=== PATIENT | male | born 1985 | race Native Hawaiian/Other Pacific Islander ===

== ENCOUNTER 2017-06-24 11:40 | Inpatient (IN) | payer OTHER ==
[2017-06-24] MEDS ORDERED: SODIUM CHLORIDE 0.9% 1,000 ML IV STA (12:04)
[2017-06-24] MEDS ORDERED: LORazepam 2 MG/ML INJ IV STA ×2 (12:04→14:29)
--- NOTE | 2017-06-24 12:04 | ED ---
General Adult HPI - General Chief complaint: Seizure Stated complaint: Seizure Time Seen by Provider: 06/24/17 11:45 Source: patient, RN notes reviewed Mode of arrival: EMS Limitations: no limitations - History of Present Illness Initial comments: 32-year-old male presents to the emergency department with chief complaint of seizure. Patient has no history of seizure. He was in the garage sweeping and the next thing he knows he woke up on the ground. Patient went into the house and he had 2 more seizures. One was witnessed by his and the second one was witnessed by EMS. He was recently placed on psychiatric medications but he states he has been taking the medicine was prescribed. There is no history of seizures and no family history of seizures. Patient does admit to headache he is postictal during time of exam. He states that his whole body feels sore. His shoulders his back chest his legs. They were concerned due to the seizure with history so they thought that they should be seen. Patient denies any recent fever, chills, shortness of breath, chest pain, back pain, abdominal pain , nausea vomiting, numbness or tingling, dysuria or hematuria, constipation or diarrhea, headaches or visual changes, or any other current symptoms. - Related Data Home Medications Medication Instructions Recorded Confirmed Citalopram Hydrobromide [CeleXA] 20 mg PO DAILY 06/24/17 06/24/17 clonazePAM [KlonoPIN] 0.5 mg PO HS 06/24/17 06/24/17 Allergies Allergy/AdvReac Type Severity Reaction Status Date / Time No Known Allergies Allergy Verified 06/24/17 12:04 Review of Systems ROS Statement: Those systems with pertinent positive or pertinent negative responses have been documented in the HPI. ROS Other: All systems not noted in ROS Statement are negative. Past Medical History Past Medical History: No Reported History History of Any Multi-Drug Resistant Organisms: None Reported Past Surgical History: No Surgical Hx Reported Past Psychological History: Depression Smoking Status: Current every day smoker Past Alcohol Use History: Occasional Past Drug Use History: None Reported General Exam Limitations: no limitations General appearance: alert, in no apparent distress Head exam: Present: other (Patient does appear to have a hematoma with abrasions to left side of the head and face) Eye exam: Present: normal appearance, PERRL, EOMI. Absent: scleral icterus, conjunctival injection, periorbital swelling ENT exam: Present: normal exam, mucous membranes moist Neck exam: Present: normal inspection. Absent: tenderness, meningismus, lymphadenopathy Respiratory exam: Present: normal lung sounds bilaterally. Absent: respiratory distress, wheezes, rales, rhonchi, stridor Cardiovascular Exam: Present: regular rate, normal rhythm, normal heart sounds. Absent: systolic murmur, diastolic murmur, rubs, gallop, clicks GI/Abdominal exam: Present: soft, normal bowel sounds. Absent: distended, tenderness, guarding, rebound, rigid Extremities exam: Present: normal inspection, full ROM, tenderness (Generalized diffuse), normal capillary refill. Absent: pedal edema, joint swelling, calf tenderness Back exam: Present: normal inspection Neurological exam: Present: alert, oriented X3, CN II-XII intact, reflexes normal. Absent: motor sensory deficit Psychiatric exam: Present: normal affect, normal mood Skin exam: Present: warm, dry, intact, normal color. Absent: rash Course Vital Signs 06/24/17 06/24/17 06/24/17 11:45 12:00 12:30 Temperature 98.6 F Pulse Rate 111 H 109 H 100 Respiratory 24 20 20 Rate Blood Pressure 135/60 129/65 132/85 O2 Sat by Pulse 99 99 100 Oximetry 06/24/17 06/24/17 06/24/17 12:43 13:45 14:32 Temperature Pulse Rate 110 H 93 94 Respiratory 22 18 20 Rate Blood Pressure 141/82 141/82 O2 Sat by Pulse 99 96 100 Oximetry - Reevaluation(s) Reevaluation #1: 06/24/17 14:31 Patient had a witnessed seizure here in the emergency department that lasted for about 20 seconds. Patient had generalized shaking. EKG Findings - EKG Comments: EKG Findings:: normal sinus rhythm 88 bpm, normal axis, no atopy, no S-T depressions or elevations, Medical Decision Making - Medical Decision Making 32-year-old male presents for new onset seizure. Patient did have a witnessed seizure here one seizure witnessed by EMS as well as possibly to prior. At this time lab work is been reviewed. Patient was given Ativan and loaded with Keppra. At this time we will admit the patient for continued care. Patient and family are in agreement this plan all questions have been answered. Dr. Ramirez agrees to the admission. - Lab Data Result diagrams: 06/24/17 12:10 06/24/17 12:10 Lab Results 06/24/17 06/24/17 06/24/17 Range/Units 12:10 12:10 12:10 WBC 10.6 (3.8-10.6) k/uL RBC 5.11 (4.30-5.90) m/uL Hgb 16.7 (13.0-17.5) gm/dL Hct 50.3 (39.0-53.0) % MCV 98.4 (80.0-100.0) fL MCH 32.7 (25.0-35.0) pg MCHC 33.2 (31.0-37.0) g/dL RDW 13.3 (11.5-15.5) % Plt Count 368 (150-450) k/uL Neutrophils % 81 % Lymphocytes % 10 % Monocytes % 6 % Eosinophils % 1 % Basophils % 0 % Neutrophils # 8.6 H (1.3-7.7) k/uL Lymphocytes # 1.1 (1.0-4.8) k/uL Monocytes # 0.7 (0-1.0) k/uL Eosinophils # 0.1 (0-0.7) k/uL Basophils # 0.0 (0-0.2) k/uL Sodium 141 (137-145) mmol/L Potassium 4.6 (3.5-5.1) mmol/L Chloride 106 (98-107) mmol/L Carbon Dioxide 23 (22-30) mmol/L Anion Gap 12 mmol/L BUN 8 L (9-20) mg/dL Creatinine 0.80 (0.66-1.25) mg/dL Est GFR (MDRD) Af Amer >60 (>60 ml/min/1.73 sqM) Est GFR (MDRD) Non-Af >60 (>60 ml/min/1.73 sqM) Glucose 98 (74-99) mg/dL Plasma Lactic Acid Boni 1.2 (0.7-2.0) mmol/L Calcium 10.1 (8.4-10.2) mg/dL Total Bilirubin 1.1 (0.2-1.3) mg/dL AST 89 H (17-59) U/L ALT 160 H (21-72) U/L Alkaline Phosphatase 62 (38-126) U/L Troponin I (0.000-0.034) ng/mL Total Protein 7.9 (6.3-8.2) g/dL Albumin 4.7 (3.5-5.0) g/dL Urine Color Urine Appearance (Clear) Urine pH (5.0-8.0) Ur Specific [place] (1.001-1.035) Urine Protein (Negative) Urine Glucose (UA) (Negative) Urine Ketones (Negative) Urine Blood (Negative) Urine Nitrite (Negative) Urine Bilirubin (Negative) Urine Urobilinogen (<2.0) mg/dL Ur Leukocyte Esterase (Negative) Urine WBC (0-5) /hpf Hyaline Casts (0-2) /lpf Urine Mucus (None) /hpf Urine Opiates Screen (NotDetected) Ur Oxycodone Screen (NotDetected) Urine Methadone Screen (NotDetected) Ur Propoxyphene Screen (NotDetected) Ur Barbiturates Screen (NotDetected) U Tricyclic Antidepress (NotDetected) Ur Phencyclidine Scrn (NotDetected) Ur Amphetamines Screen (NotDetected) U Methamphetamines Scrn (NotDetected) U Benzodiazepines Scrn (NotDetected) Urine Cocaine Screen (NotDetected) U Marijuana (THC) Screen (NotDetected) Serum Alcohol <10 mg/dL 06/24/17 06/24/17 06/24/17 Range/Units 12:10 13:50 13:50 WBC (3.8-10.6) k/uL RBC (4.30-5.90) m/uL Hgb (13.0-17.5) gm/dL Hct (39.0-53.0) % MCV (80.0-100.0) fL MCH (25.0-35.0) pg MCHC (31.0-37.0) g/dL RDW (11.5-15.5) % Plt Count (150-450) k/uL Neutrophils % % Lymphocytes % % Monocytes % % Eosinophils % % Basophils % % Neutrophils # (1.3-7.7) k/uL Lymphocytes # (1.0-4.8) k/uL Monocytes # (0-1.0) k/uL Eosinophils # (0-0.7) k/uL Basophils # (0-0.2) k/uL Sodium (137-145) mmol/L Potassium (3.5-5.1) mmol/L Chloride (98-107) mmol/L Carbon Dioxide (22-30) mmol/L Anion Gap mmol/L BUN (9-20) mg/dL Creatinine (0.66-1.25) mg/dL Est GFR (MDRD) Af Amer (>60 ml/min/1.73 sqM) Est GFR (MDRD) Non-Af (>60 ml/min/1.73 sqM) Glucose (74-99) mg/dL Plasma Lactic Acid Boni (0.7-2.0) mmol/L Calcium (8.4-10.2) mg/dL Total Bilirubin (0.2-1.3) mg/dL AST (17-59) U/L ALT (21-72) U/L Alkaline Phosphatase (38-126) U/L Troponin I <0.012 (0.000-0.034) ng/mL Total Protein (6.3-8.2) g/dL Albumin (3.5-5.0) g/dL Urine Color Yellow Urine Appearance Cloudy (Clear) Urine pH 8.0 (5.0-8.0) Ur Specific [place] 1.014 (1.001-1.035) Urine Protein 1+ H (Negative) Urine Glucose (UA) Negative (Negative) Urine Ketones 3+ H (Negative) Urine Blood Negative (Negative) Urine Nitrite Negative (Negative) Urine Bilirubin Negative (Negative) Urine Urobilinogen 8.0 (<2.0) mg/dL Ur Leukocyte Esterase Negative (Negative) Urine WBC 26 H (0-5) /hpf Hyaline Casts 18 H (0-2) /lpf Urine Mucus Many H (None) /hpf Urine Opiates Screen Detected H (NotDetected) Ur Oxycodone Screen Not Detected (NotDetected) Urine Methadone Screen Not Detected (NotDetected) Ur Propoxyphene Screen Not Detected (NotDetected) Ur Barbiturates Screen Not Detected (NotDetected) U Tricyclic Antidepress Not Detected (NotDetected) Ur Phencyclidine Scrn Not Detected (NotDetected) Ur Amphetamines Screen Not Detected (NotDetected) U Methamphetamines Scrn Not Detected (NotDetected) U Benzodiazepines Scrn Detected H (NotDetected) Urine Cocaine Screen Not Detected (NotDetected) U Marijuana (THC) Screen Not Detected (NotDetected) Serum Alcohol mg/dL - Radiology Data Radiology results: report reviewed, image reviewed Disposition Clinical Impression: Forehead contusion, Seizure, Elevated liver enzymes Disposition: ADMITTED IP TO THIS [facility] Condition: Stable Referrals: Anibal Keller MD [Primary Care Provider] - 1-2 days Decision Date: 06/24/17 Decision Time: 14:35
[2017-06-24] MEDS ORDERED: DIPH,PERTUS(ACELL)TETVAC-LF 0.5 ML VIAL IM ONE (12:05)
[2017-06-24] MEDS ORDERED: RX INFO: IV CONTRAST WAS GIVEN 1 EACH MISC MISCELLANE PRN (12:05)
[2017-06-24 12:35] LABS: ALT 160 U/L (21-72); AST 89 U/L (17-59); Albumin 4.7 g/dL (3.5-5.0); Alcohol <10 mg/dL; Alkaline Phosphatase 62 U/L (38-126); Anion Gap 12 mmol/L; Blood Urea Nitrogen 8 mg/dL (9-20); Calcium 10.1 mg/dL (8.4-10.2); Carbon Dioxide 23 mmol/L (22-30); Chloride 106 mmol/L (98-107); Glucose 98 mg/dL (74-99); Potassium 4.6 mmol/L (3.5-5.1); Sodium 141 mmol/L (137-145); Total Bilirubin 1.1 mg/dL (0.2-1.3); Total Protein 7.9 g/dL (6.3-8.2)
[2017-06-24 12:44] LABS: Basophils % (A) 0 %; Eosinophils # (A) 0.1 k/uL (0-0.7); Eosinophils % (A) 1 %; HCT 50.3 % (39.0-53.0); HGB 16.7 gm/dL (13.0-17.5); Lymphocytes # (A) 1.1 k/uL (1.0-4.8); Lymphocytes % (A) 10 %; MCH 32.7 pg (25.0-35.0); MCHC 33.2 g/dL (31.0-37.0); MCV 98.4 fL (80.0-100.0); Mean Platelet Volume 6.5; Monocytes # (A) 0.7 k/uL (0-1.0); Monocytes % (A) 6 %; Neutrophils # (A) 8.6 k/uL (1.3-7.7); Neutrophils % (A) 81 %; Platelet Count 368 k/uL (150-450); RBC 5.11 m/uL (4.30-5.90); RDW 13.3 % (11.5-15.5); WBC 10.6 k/uL (3.8-10.6)
--- NOTE | 2017-06-24 12:57 | CT ---
EXAMINATION TYPE: CT brain oumar nolan DATE OF EXAM: 06/24/2017 COMPARISON: NONE HISTORY: Patient poor historian. Trauma. Patient found on ground with multiple left side facial lace rations. Probable seizure with fall. Patient complains of headache. Patient exhibits altered menta l status and memory loss. CT DLP: 1761.3 mGycm Automated exposure control for dose reduction was used. TECHNIQUE: CT scan of the head and cervical spine are performed without contrast. FINDINGS: There is no acute intracranial hemorrhage, mass effect, or midline shift identified. The ventricles and sulci are within normal limits in size. The globes are intact and the visualized sin uses are clear. Cervical spine is visualized in its entirety from C1 through upper thoracic levels and demonstrates s atisfactory alignment without evidence of acute fracture or dislocation. Prevertebral soft tissue ap pears within normal limits. The C1-C2 articulation is unremarkable. IMPRESSION: 1. There is no acute fracture or dislocation evident in the cervical spine. 2. No acute intracranial hemorrhage, mass effect, or midline shift is seen.
--- NOTE | 2017-06-24 12:58 | CT ---
EXAMINATION TYPE: CT facial bones wo con DATE OF EXAM: 06/24/2017 COMPARISON: NONE HISTORY: 32-year-old male Patient poor historian. Patient found on ground with multiple left side f acial lacerations. Probable seizure with fall. Patient complains of headache. Patient exhibits alt ered mental status and memory loss. TECHNIQUE: Contiguous axial scanning of the facial bones without IV contrast. Coronal reconstructions performed. CT DLP: 468 mGycm Automated exposure control for dose reduction was used. FINDINGS: Brain and cervical spine reported separately. Trace mucosal thickening within the anterior ethmoid air cells and left sphenoid sinus. There is lobu lated mucosal thickening along the lateral roof of the left maxillary sinus. No air-fluid levels. Rightward nasal septal deviation. No nasal bone, orbital, zygomatic arch, or pterygoid plate fracture identified. IMPRESSION: NO ACUTE FACIAL BONE FRACTURE SEEN. MILD CHRONIC PARANASAL SINUS DISEASE AND RIGHTWARD NASAL SEPTAL D EVIATION
[2017-06-24 14:28] LABS: Appearance,Urine Cloudy (Clear); Bilirubin,Urine Negative (Negative); Blood,Urine Negative (Negative); Color,Urine Yellow; Glucose,Urine (UA) Negative (Negative); Hyaline Casts,Urine 18 /lpf (0-2); Ketones,Urine 3+ (Negative); Leukocyte Esterase,Urine Negative (Negative); Mucus,Urine Many /hpf; Nitrite,Urine Negative (Negative); Protein,Urine 1+ (Negative); Specific Gravity,Urine 1.014 (1.001-1.035); WBC,Urine 26 /hpf (0-5)
[2017-06-24] MEDS ORDERED: levETIRAcetam IV 1,500 MG in SALINE 1 100ML.BAG IVPB STA (14:30)
[2017-06-24 14:34] LABS: Urn Cannabinoid Scrn Not Detected (NotDetected)
[2017-06-24 14:35] LABS: Amphetamine Screen,Urine Not Detected (NotDetected); Barbiturate Screen,Urine Not Detected (NotDetected); Benzodiazepines Screen,Urine Detected (NotDetected); Cocaine Screen,Urine Not Detected (NotDetected); Methadone Screen, Urine Not Detected (NotDetected); Opiate Screen,Urine Detected (NotDetected); Oxycodone Screen, Urine Not Detected (NotDetected); Phencyclidine Screen,Urine Not Detected (NotDetected); Tricyclic Antidepressant,Urine Not Detected (NotDetected)
[2017-06-24] MEDS ORDERED: NALOXONE 0.4 MG/ML 1 ML VIAL IV PRN (14:35)
[2017-06-24] MEDS ORDERED: LORazepam 2 MG/ML INJ IV PRN (14:35)
[2017-06-24] MEDS ORDERED: SODIUM CHLORIDE 0.9% 1,000 ML IV SCH (14:45)
[2017-06-24 15:54] LABS: Acetaminophen <10.0 ug/mL; Magnesium 2.4 mg/dL (1.6-2.3); Salicylate 4.8 mg/dL
[2017-06-24 16:41] VITALS: BP 128/83; PULSE 95; RESP 16; TEMP 97.3
[2017-06-26 08:25] LABS: C. trachomatis,PCR Positive (Neg,Equiv); Chlamydia trachomatis Source Urine; N. gonorrhoeae,PCR Negative (Neg,Equiv); Neisseria Source Urine
== END 2017-06-24 17:05 | disposition left against medical advice (07) | DRG 101 ==
LOC: EC 11:40 → 5MS5E 15:13
PROVIDERS: ADMIT Internal Medicine; ATTEND Internal Medicine
PROC: 3E0234Z Introduction of Serum, Toxoid and Vaccine into Muscle, Percutaneous Approach (ICD-10-PCS; principal; 2017-06-24)
DX: G40.909 Epilepsy, unspecified, not intractable, without status epilepticus (principal); F17.200 Nicotine dependence, unspecified, uncomplicated; F32.9 Major depressive disorder, single episode, unspecified; S00.83XA Contusion of other part of head, initial encounter; Z23 Encounter for immunization; Z79.899 Other long term (current) drug therapy
CPT/HCPCS: 36415; 70450; 70486; 72125; 80053; 80306; 80320; 81001; 83520; 83605; 83735; 84484; 85025; 87491; 87591; 90471; 90715; 93005; 96361; 96365; 96375; 99285

== ENCOUNTER 2017-06-24 17:51 | Emergency (ER) | payer OTHER ==
[2017-06-24 18:06] VITALS: BP 139/93; PULSE 109; RESP 18; TEMP 99.3
--- NOTE | 2017-06-24 18:44 | ED ---
General Adult HPI - General Chief complaint: Head Injury Stated complaint: possible Seizure Time Seen by Provider: 06/24/17 18:09 Source: patient, family, RN notes reviewed Mode of arrival: wheelchair Limitations: no limitations - History of Present Illness Initial comments: 32-year-old male presented to the emergency department after leaving AMA for a seizure. He states that he does not want to be here. He states that he has had no recent seizure activity. He left the floor because he started to feel panicky. He states that when he got scarred he realized it was a bad idea and he came back in. He denies any symptoms at this time. He denies any pain or discomfort. He denies any traumas or any changes in eating. He states that he is here to be admitted. The patient has multiple arguments and loud shouting arguments with his family in the room. He denies any suicidal or homicidal ideation. Patient denies any recent fever, chills, shortness of breath, chest pain, back pain, abdominal pain, nausea vomiting, numbness or tingling, dysuria or hematuria, constipation or diarrhea, headaches or visual changes, or any other current symptoms. - Related Data Home Medications Medication Instructions Recorded Confirmed Citalopram Hydrobromide [CeleXA] 20 mg PO DAILY 06/24/17 06/24/17 clonazePAM [KlonoPIN] 0.5 mg PO HS 06/24/17 06/24/17 Allergies Allergy/AdvReac Type Severity Reaction Status Date / Time No Known Allergies Allergy Verified 06/24/17 18:21 Review of Systems ROS Statement: Those systems with pertinent positive or pertinent negative responses have been documented in the HPI. ROS Other: All systems not noted in ROS Statement are negative. Past Medical History Past Medical History: GERD/Reflux Additional Past Medical History / Comment(s): ULCERS History of Any Multi-Drug Resistant Organisms: None Reported Past Surgical History: No Surgical Hx Reported Additional Past Surgical History / Comment(s): DENIES ANY PAST SX Past Anesthesia/Blood Transfusion Reactions: No Reported Reaction Past Psychological History: Depression Smoking Status: Current every day smoker Past Alcohol Use History: Occasional Past Drug Use History: None Reported - Past Family History Father Family Medical History: No Reported History Mother Family Medical History: No Reported History General Exam Limitations: no limitations General appearance: alert, in no apparent distress Head exam: Present: other (Patient does appear to have a hematoma to the left forehead) Eye exam: Present: normal appearance, PERRL, EOMI. Absent: scleral icterus, conjunctival injection, periorbital swelling ENT exam: Present: normal exam, mucous membranes moist Neck exam: Present: normal inspection. Absent: tenderness, meningismus, lymphadenopathy Respiratory exam: Present: normal lung sounds bilaterally. Absent: respiratory distress, wheezes, rales, rhonchi, stridor Cardiovascular Exam: Present: regular rate, normal rhythm, normal heart sounds. Absent: systolic murmur, diastolic murmur, rubs, gallop, clicks Extremities exam: Present: normal inspection, full ROM, normal capillary refill. Absent: tenderness, pedal edema, joint swelling, calf tenderness Back exam: Present: normal inspection Neurological exam: Present: alert, oriented X3, CN II-XII intact, reflexes normal. Absent: motor sensory deficit Psychiatric exam: Present: normal affect, normal mood Skin exam: Present: warm, dry, intact, normal color. Absent: rash Course Vital Signs 06/24/17 18:02 Temperature 99.3 F Pulse Rate 109 H Respiratory 18 Rate Blood Pressure 139/93 O2 Sat by Pulse 98 Oximetry Medical Decision Making - Medical Decision Making 32-year-old male presents for readmission after leaving AMA from the floor for new onset seizure. Patient proceeded to leave AMA from the emergency department after yelling with family members. We did try to convince the patient states her we discussed the risks of leaving. We discussed that we are concerned about his new onset seizures and that there could be something more serious going on he does need to have additional testing. The patient stated that he understood this risk but he does not want to stay here. The patient proceeded to leave AGAINST MEDICAL ADVICE. We did discuss that this could lead to more and more issues. The patient stated that he understood but he will be leaving at this time. Disposition Clinical Impression: Seizure, Forehead contusion Disposition: Left Against Medical Advice Condition: Undetermined Referrals: Anibal Keller MD [Primary Care Provider] - 1-2 days
== END 2017-06-24 18:43 | disposition left against medical advice (07) ==
LOC: EC 17:51
DX: S00.83XA Contusion of other part of head, initial encounter (principal); R56.9 Unspecified convulsions; F32.9 Major depressive disorder, single episode, unspecified; F17.200 Nicotine dependence, unspecified, uncomplicated; Z79.899 Other long term (current) drug therapy; W19.XXXA Unspecified fall, initial encounter; Y92.015 Private garage of single-family (private) house as the place of occurrence of the external cause
CPT/HCPCS: 99282

== ENCOUNTER 2021-01-15 20:47 | Emergency (ER) | payer OTHER ==
[2021-01-15] MEDS ORDERED: SODIUM CHLORIDE 0.9% 1,000 ML IV STA (21:37)
[2021-01-15] MEDS ORDERED: LORazepam 2 MG/ML INJ IV PRN ×3 (21:38)
[2021-01-15] MEDS ORDERED: LORazepam 2 MG/ML INJ IV STA (21:38)
--- NOTE | 2021-01-15 22:00 | ED ---
Alcohol HPI - General Chief Complaint: Alcohol Stated Complaint: Alcohol Withdrawal Time Seen by Provider: 01/15/21 21:24 Source: patient, RN notes reviewed Mode of arrival: ambulatory Limitations: no limitations - History of Present Illness Initial Comments: This is a 35-year-old male presents emergency Department chief complaint of alcohol withdrawal, chest discomfort. Patient states that he wants to stop drinking but states he can't states she started having withdrawal symptoms after one hour states he basically drinks of beer every hour throughout the day. Patient states that he has some mild chest and abdominal discomfort. Has no history of pancreatitis her known liver disease. Patient denies any illicit drug use. Patient states his feels his heart is racing, he is concerned about possible seizure. - Related Data Home Medications Medication Instructions Recorded Confirmed Citalopram Hydrobromide [CeleXA] 20 mg PO DAILY 06/24/17 06/24/17 clonazePAM [KlonoPIN] 0.5 mg PO HS 06/24/17 06/24/17 Previous Rx's Medication Instructions Recorded chlordiazePOXIDE HCl [Librium] 25 mg PO QID #20 cap 01/16/21 Allergies Allergy/AdvReac Type Severity Reaction Status Date / Time No Known Allergies Allergy Verified 01/15/21 21:02 Review of Systems ROS Statement: Those systems with pertinent positive or pertinent negative responses have been documented in the HPI. ROS Other: All systems not noted in ROS Statement are negative. Past Medical History Past Medical History: GERD/Reflux Additional Past Medical History / Comment(s): ULCERS History of Any Multi-Drug Resistant Organisms: None Reported Past Surgical History: No Surgical Hx Reported Additional Past Surgical History / Comment(s): DENIES ANY PAST SX Past Anesthesia/Blood Transfusion Reactions: No Reported Reaction Past Psychological History: Depression Smoking Status: Vaper Past Alcohol Use History: Abuse Past Drug Use History: None Reported - Past Family History Father Family Medical History: No Reported History Mother Family Medical History: No Reported History General Exam Limitations: no limitations General appearance: alert, in no apparent distress, anxious Head exam: Present: atraumatic, normocephalic, normal inspection Eye exam: Present: normal appearance, PERRL, EOMI. Absent: scleral icterus, conjunctival injection, periorbital swelling Respiratory exam: Present: normal lung sounds bilaterally. Absent: respiratory distress, wheezes, rales, rhonchi, stridor Cardiovascular Exam: Present: normal rhythm, tachycardia, normal heart sounds. Absent: systolic murmur, diastolic murmur, rubs, gallop, clicks GI/Abdominal exam: Present: soft, normal bowel sounds. Absent: distended, tenderness, guarding, rebound, rigid Neurological exam: Present: alert, oriented X3 Course Vital Signs 01/15/21 01/16/21 20:55 00:03 Temperature 98.4 F 97.4 F L Pulse Rate 118 H 113 H Respiratory 20 18 Rate Blood Pressure 155/109 153/113 O2 Sat by Pulse 94 L 97 Oximetry Medical Decision Making - Medical Decision Making 35-year-old male presented for alcohol withdrawal. Patient did have some other vague complaints. Workup was completed shows evidence of mild transaminitis. Most likely from alcohol abuse. I did recommend patient to be admitted secondary symptoms patient refuses patient is here with family member who agrees that he can go home given her prior Librium which she'll be held by family member who provided resources for rehab and return parameters were discussed. - Lab Data Result diagrams: 01/15/21 21:52 01/15/21 21:52 Lab Results 01/15/21 01/15/21 01/15/21 Range/Units 21:52 21:52 21:52 WBC 5.8 (3.8-10.6) k/uL RBC 4.28 L (4.30-5.90) m/uL Hgb 15.3 (13.0-17.5) gm/dL Hct 43.4 (39.0-53.0) % MCV 101.2 H (80.0-100.0) fL MCH 35.7 H (25.0-35.0) pg MCHC 35.2 (31.0-37.0) g/dL RDW 12.2 (11.5-15.5) % Plt Count 379 (150-450) k/uL MPV 6.4 Neutrophils % 49 % Lymphocytes % 37 % Monocytes % 6 % Eosinophils % 4 % Basophils % 1 % Neutrophils # 2.9 (1.3-7.7) k/uL Lymphocytes # 2.1 (1.0-4.8) k/uL Monocytes # 0.4 (0-1.0) k/uL Eosinophils # 0.3 (0-0.7) k/uL Basophils # 0.0 (0-0.2) k/uL Sodium 141 (137-145) mmol/L Potassium 4.3 (3.5-5.1) mmol/L Chloride 102 (98-107) mmol/L Carbon Dioxide 25 (22-30) mmol/L Anion Gap 14 mmol/L BUN 6 L (9-20) mg/dL Creatinine 0.74 (0.66-1.25) mg/dL Est GFR (CKD-EPI)AfAm >90 (>60 ml/min/1.73 sqM) Est GFR (CKD-EPI)NonAf >90 (>60 ml/min/1.73 sqM) Glucose 119 H (74-99) mg/dL Calcium 9.4 (8.4-10.2) mg/dL Magnesium 2.0 (1.6-2.3) mg/dL Total Bilirubin 0.2 (0.2-1.3) mg/dL AST 130 H (17-59) U/L ALT 164 H (4-49) U/L Alkaline Phosphatase 86 (38-126) U/L Troponin I <0.012 (0.000-0.034) ng/mL Total Protein 8.0 (6.3-8.2) g/dL Albumin 4.7 (3.5-5.0) g/dL Lipase 247 (23-300) U/L Serum Alcohol 251 H* mg/dL Disposition Clinical Impression: Transaminitis, Alcoholic intoxication, Alcohol abuse, Hypertension Disposition: HOME SELF-CARE Condition: Stable Instructions (If sedation given, give patient instructions): Alcohol Withdrawal (ED) Additional Instructions: Please return to the Emergency Department if symptoms worsen or any other concerns. Prescriptions: chlordiazePOXIDE HCl [Librium] 25 mg PO QID #20 cap Is patient prescribed a controlled substance at d/c from ED?: Yes When asked, does pt state using other controlled substances?: No If prescribed controlled substance>3 days was MAPS reviewed?: Yes Referrals: None,Stated [Primary Care Provider] - 1-2 days Time of Disposition: 00:10
[2021-01-15 22:12] LABS: Basophils % (A) 1 %; Eosinophils # (A) 0.3 k/uL (0-0.7); Eosinophils % (A) 4 %; HCT 43.4 % (39.0-53.0); HGB 15.3 gm/dL (13.0-17.5); Lymphocytes # (A) 2.1 k/uL (1.0-4.8); Lymphocytes % (A) 37 %; MCH 35.7 pg (25.0-35.0); MCHC 35.2 g/dL (31.0-37.0); MCV 101.2 fL (80.0-100.0); Mean Platelet Volume 6.4; Monocytes # (A) 0.4 k/uL (0-1.0); Monocytes % (A) 6 %; Neutrophils # (A) 2.9 k/uL (1.3-7.7); Neutrophils % (A) 49 %; Platelet Count 379 k/uL (150-450); RBC 4.28 m/uL (4.30-5.90); RDW 12.2 % (11.5-15.5); WBC 5.8 k/uL (3.8-10.6)
[2021-01-15] MEDS ORDERED: SODIUM CHLORIDE 0.9% 1,000 ML with MVI, ADULT NO.4 WITH VIT K 10 ML, THIAMINE 100 MG, F... IV ONE ×4 (22:15)
[2021-01-15 22:29] LABS: ALT 164 U/L (4-49); AST 130 U/L (17-59); African American GFR (CKD) >90 (>60 ml/min/1.73 sqM); Albumin 4.7 g/dL (3.5-5.0); Alkaline Phosphatase 86 U/L (38-126); Anion Gap 14 mmol/L; Blood Urea Nitrogen 6 mg/dL (9-20); Calcium 9.4 mg/dL (8.4-10.2); Carbon Dioxide 25 mmol/L (22-30); Chloride 102 mmol/L (98-107); Glucose 119 mg/dL (74-99); Lipase 247 U/L (23-300); Non-African American GFR(CKD) >90 (>60 ml/min/1.73 sqM); Potassium 4.3 mmol/L (3.5-5.1); Sodium 141 mmol/L (137-145); Total Bilirubin 0.2 mg/dL (0.2-1.3)
[2021-01-15 22:30] LABS: Alcohol 251 mg/dL
--- NOTE | 2021-01-15 23:45 | XR ---
EXAMINATION TYPE: XR chest 2V DATE OF EXAM: 01/15/2021 COMPARISON: NONE HISTORY: Cough TECHNIQUE: 2 views FINDINGS: Heart and mediastinum are normal. Lungs are clear. Diaphragm is normal. Bony thorax is norm al. IMPRESSION: Normal chest.
[2021-01-16] MEDS ORDERED: LABETALOL 5 MG/ML VIAL MDV IVP STA (00:01)
[2021-01-16] MEDS ORDERED: LORazepam 2 MG/ML INJ IV STA (00:01)
[2021-01-16 00:04] VITALS: RESP 18
[2021-01-16] MEDS ORDERED: DIAZEPAM 5 MG/ML 2 ML INJ IVP STA (00:09)
[2021-01-16 00:32] VITALS: BP 140/95; PULSE 98; TEMP 98.1
== END 2021-01-16 00:48 | disposition home or self-care (01) ==
LOC: EC 20:47
DX: F10.129 Alcohol abuse with intoxication, unspecified (principal); I10 Essential (primary) hypertension; R74.01 Elevation of levels of liver transaminase levels; K21.9 Gastro-esophageal reflux disease without esophagitis; F32.9 Major depressive disorder, single episode, unspecified; F17.290 Nicotine dependence, other tobacco product, uncomplicated; Y90.8 Blood alcohol level of 240 mg/100 ml or more
CPT/HCPCS: 99285; 96365; 96366; 96375 ×2; 96361; 36415; 93005; 80053; 83690; 83735; 84484; 85025; 80320; 71046; J2060; J3411; J3360